=== PATIENT | male | born 1990 | race Caucasian/White ===

== ENCOUNTER 2021-04-25 18:04 | Emergency (ER) | payer BC ==
--- NOTE | 2021-04-25 18:50 | EDM.PDOC ---
ED HPI GENERAL MEDICAL PROBLEM - General Chief Complaint: Upper Extremity Injury/Pain Stated Complaint: right shoulder injruy Time Seen by Provider: 04/25/21 18:07 Source of Information: Reports: Patient History Limitations: Reports: No Limitations - History of Present Illness INITIAL COMMENTS - FREE TEXT/NARRATIVE: Patient was trying to cut down a tree and ladder slipped. Fell onto right shoulder on grass. About 5-6 feet. Has some pain in right shoulder area but denies other injuries. No LOC. No other pain complaint. No numbness/tingling/weakness of arm. Right Shoulder Pain Score (Numeric/FACES): 3 - Related Data Allergies Allergy/AdvReac Type Severity Reaction Status Date / Time No Known Allergies Allergy Verified 04/25/21 18:05 Home Meds: Home Meds Escitalopram Oxalate [Lexapro] 1 tab PO DAILY 04/25/21 [History] Past Medical History Psychiatric History: Reports: Anxiety Social & Family History - Tobacco Use Tobacco Use Status *Q: Never Tobacco User Second Hand Smoke Exposure: No - Caffeine Use Caffeine Use: Reports: Coffee - Recreational Drug Use Recreational Drug Use: No Review of Systems - Review of Systems Review Of Systems: See Below Constitutional: Reports: No Symptoms Eyes: Reports: No Symptoms Ears: Reports: No Symptoms Nose: Reports: No Symptoms Mouth/Throat: Reports: No Symptoms Respiratory: Reports: No Symptoms. Denies: Pleuritic Chest Pain Cardiovascular: Reports: Other (discomfort under right shoulder lateral right chest) GI/Abdominal: Reports: No Symptoms Musculoskeletal: Reports: Shoulder Pain. Denies: Neck Pain, Arm Pain, Back Pain, Hand Pain, Leg Pain, Foot Pain, Joint Swelling Skin: Reports: No Symptoms Neurological: Reports: No Symptoms Psychiatric: Reports: No Symptoms ED EXAM, GENERAL - Physical Exam Exam: See Below Exam Limited By: No Limitations General Appearance: Alert, WD/WN, No Apparent Distress, Obese Eye Exam: Bilateral Eye: EOMI, PERRL Ears: Normal External Exam, Hearing Grossly Normal Nose: No: Nasal Deformity, Nasal Swelling, Nasal Drainage Throat/Mouth: Normal Lips, Normal Voice, No Airway Compromise Head: Atraumatic, Normocephalic Neck: Supple, Non-Tender, Full Range of Motion Respiratory/Chest: No Respiratory Distress, Lungs Clear, No Accessory Muscle Use, Other (tender with palpation lateral right chest under shoulder) Cardiovascular: Normal Peripheral Pulses, Regular Rate, Rhythm GI/Abdominal: Soft (Male) Exam: Deferred Rectal (Males) Exam: Deferred Back Exam: No: Muscle Spasm, Paraspinal Tenderness, Vertebral Tenderness Extremities: Normal Capillary Refill, Other (unable to raise right arm past 90 degrees on right. No obvious swelling/deformity/bruising. Shoulder tender along AC joint line. Right arm/hand nontender. ) Neurological: Alert, Oriented, CN II-XII Intact, Normal Cognition, Normal Gait, Other (sensation intact) Psychiatric: Normal Affect, Normal Mood Skin Exam: Warm, Dry, Intact, Normal Color Course - Vital Signs Last Recorded V/S: Last Vital Signs Temp 36.5 C 04/25/21 18:04 Pulse 77 04/25/21 18:04 Resp 18 04/25/21 18:04 BP 128/81 04/25/21 18:48 Pulse Ox 99 04/25/21 18:04 - Orders/Labs/Meds Orders: Active Orders 24 hr Category Date Time Status Shoulder Comp Rt [CR] Stat Exams 04/25/21 18:10 Ordered Meds: Medications Discontinued Medications Generic Name Dose Route Start Last Admin Trade Name Freq PRN Reason Stop Dose Admin Tramadol HCl 50 mg 04/25/21 18:42 Tramadol 50 Mg Tab PO 04/25/21 18:43 ONETIME ONE - Re-Assessments/Exams Free Text/Narrative Re-Assessment/Exam: 04/25/21 18:55 Patient noted to be moving shoulder around and a popping noise was noted/patient reported it was associated with increased pain intensity. Suspect A/C injury. Xrays did not show obvious bony abnormality. Formal Radiology review pending. Patient received PO Toradol. Declined sling. Instructed to follow up with Ortho walk in clinic in [place] for further evaluation and planning. Departure - Departure Time of Disposition: 18:46 Disposition: Home, Self-Care 01 Condition: Good Clinical Impression: Injury of right shoulder Qualifiers: Encounter type: initial encounter Qualified Code(s): S49.91XA - Unspecified injury of right shoulder and upper arm, initial encounter - Discharge Information *PRESCRIPTION DRUG MONITORING PROGRAM REVIEWED*: Not Applicable *COPY OF PRESCRIPTION DRUG MONITORING REPORT IN PATIENT SHELL: Not Applicable Forms: ED Department Discharge Additional Instructions: Would recommend going to Ortho walk in clinic in [place] for further evaluation. Remember that [facility] already has access to your xrays. If you want to go to [facility] you need to have the hospital send the films to their facility. You may need further imaging to look for rotator cuff injury or referral to PT if problems persist. In mean time take it easy with the shoulder. Ice sore areas. Ibuprofen or Aleve plus Tylenol for pain. Sepsis Event Note (ED) - Evaluation Sepsis Screening Result: No Definite Risk - Focused Exam Vital Signs: Vital Signs Temp Pulse Resp BP Pulse Ox 04/25/21 18:48 128/81 04/25/21 18:04 36.5 C 77 18 147/97 H 99 - My Orders Last 24 Hours: My Active Orders 04/25/21 18:10 Shoulder Comp Rt [CR] Stat - Assessment/Plan Last 24 Hours: My Active Orders 04/25/21 18:10 Shoulder Comp Rt [CR] Stat
[2021-04-25] MEDS: traMADol 50 MG Tab PO ONE (18:59)
== END 2021-04-25 19:10 | disposition home or self-care (01) ==
LOC: LL.ED 18:04
DX: S49.91XA Unspecified injury of right shoulder and upper arm, initial encounter (principal); W11.XXXA Fall on and from ladder, initial encounter
CPT/HCPCS: 73030; 99283; A9270